=== PATIENT | male | born 1985 | race Caucasian/White ===

== ENCOUNTER 2020-08-10 11:03 | Emergency (ER) | payer BC, OTHER ==
[2020-08-10] MEDS ORDERED: cefTRIAXone 1 GM in Sodium Chloride 0.9% 100 ML IV ONE (11:44)
[2020-08-10] MEDS ORDERED: Sodium Chloride 0.9% 10 ML Syringe FLUSH PRN (11:44)
[2020-08-10] MEDS ORDERED: Sodium Chloride 0.9% 1,000 ML IV ONE (11:44)
--- NOTE | 2020-08-10 11:50 | EDM.PDOC ---
ED HPI GENERAL MEDICAL PROBLEM - General Chief Complaint: General Stated Complaint: ELBOW CELLULITIS GETTING WORSE Time Seen by Provider: 08/10/20 11:46 Source of Information: Reports: Patient History Limitations: Reports: No Limitations - History of Present Illness INITIAL COMMENTS - FREE TEXT/NARRATIVE: Patient is unfortunate 35-year-old male who presents emerged part today with complaint of right elbow redness and swelling. The patient reports that started having redness and swelling to his right elbow 4 days ago and it progressively worsened so he was not seen in the clinic 2 days ago in [place] and reports he was given a shot of antibiotics and started on Bactrim. The patient reports he is down here visiting and he notes that the redness on his arm has in creased, he has erythema that extends from his right elbow to his proximal right forearm approximately 22 cm in length and 12 cm in width over the dorsum of his right forearm and elbow, distal neurovascular is intact, the patient reports that he has had no fever at home no nausea no vomiting no chest pain no cough no congestion no shortness of breath Left Arm Pain Score (Numeric/FACES): 4 - Related Data Allergies Allergy/AdvReac Type Severity Reaction Status Date / Time No Known Allergies Allergy Verified 08/10/20 11:45 Home Meds: Home Meds Sulfamethoxazole/Trimethoprim [Sulfamethoxazole-Tmp Ds Tablet] 1 each PO ASDIRECTED 08/10/20 [History] Past Medical History - Past Health History Medical/Surgical History: Denies Medical/Surgical History Review of Systems - Review of Systems Review Of Systems: See Below Constitutional: Denies: Chills, Fever Musculoskeletal: Reports: Joint Pain, Joint Swelling Skin: Reports: Erythema ED EXAM, GENERAL - Physical Exam Exam: See Below Exam Limited By: No Limitations General Appearance: Alert, WD/WN, Mild Distress Neck: Normal Inspection, Supple, Non-Tender, Full Range of Motion Respiratory/Chest: No Respiratory Distress, Lungs Clear, Normal Breath Sounds, No Accessory Muscle Use, Chest Non-Tender Cardiovascular: Normal Peripheral Pulses, Regular Rate, Rhythm, No Edema, No Gallop, No JVD, No Murmur, No Rub GI/Abdominal: Normal Bowel Sounds, Soft, Non-Tender, No Organomegaly, No Distention, No Abnormal Bruit, No Mass Back Exam: Normal Inspection, Full Range of Motion, NT Extremities: Other (Patient has a 22 x 12 area of erythema that extends from his right elbow to his right forearm on the dorsal aspect, distal neurovascular is intact) Neurological: Alert, Oriented Skin Exam: Warm, Dry, Erythema Front/Back Body Diagram: 1 - Erythema and swelling Course - Vital Signs Text/Narrative:: Patient has infected olecranon bursitis with cellulitis, discussed the case with Dr. Quintero at [place] in [place] sepsis patient in transfer at 1240 Last Recorded V/S: Last Vital Signs Temp 98.0 F 08/10/20 11:46 Pulse 98 08/10/20 11:46 Resp 18 08/10/20 11:46 BP 117/89 08/10/20 11:50 Pulse Ox 98 08/10/20 11:46 - Orders/Labs/Meds Orders: Active Orders 24 hr Category Date Time Status Blood Pressure Mgt: Sepsis [RC] Q15MX2 Care 08/10/20 11:45 Active CULTURE BLOOD [BC] Stat Lab 08/10/20 11:58 Received CULTURE BLOOD [BC] Stat Lab 08/10/20 12:02 Received UA W/MICROSCOPIC [URIN] Stat Lab 08/10/20 11:45 Ordered Sodium Chloride 0.9% [Saline Flush] Med 08/10/20 11:44 Active 10 ml FLUSH ASDIRECTED PRN Blood Culture x2 Reflex Set [OM.PC] Stat Oth 08/10/20 11:45 Ordered Saline Lock Insert [OM.PC] Stat Oth 08/10/20 11:45 Ordered Severe Sepsis Onset Time [OM.PC] Stat Oth 08/10/20 11:45 Ordered Medication Orders Sodium Chloride (Sodium Chloride 0.9% 10 Ml Syringe) 10 ml FLUSH ASDIRECTED PRN PRN Reason: Keep Vein Open Last Admin: 08/10/20 12:08 Dose: 10 ml Documented by: VERENICE Labs: Laboratory Tests 08/10/20 08/10/20 08/10/20 Range/Units 11:58 11:58 11:58 WBC 14.8 H (5.0-10.0) 10^3/uL RBC 5.21 (4.6-6.2) 10^6/uL Hgb 14.1 (14.0-18.0) g/dL Hct 41.7 (40.0-54.0) % MCV 80.0 (80-100) fL MCH 27.1 (27.0-34.0) pg MCHC 33.8 (33.0-35.0) g/dL Plt Count 332 (150-450) 10^3/uL Neut % (Auto) 80.9 H (42.2-75.2) % Lymph % (Auto) 10.8 L (20.5-50.1) % [place] % (Auto) 7.8 (2-8) % Eos % (Auto) 0.4 L (1.0-3.0) % Baso % (Auto) 0.1 (0.0-1.0) % PT 10.1 (9.0-12.0) SEC INR 1.0 (0.9-1.2) Sodium 140 (136-145) mmol/L Potassium 3.4 L (3.5-5.1) mmol/L Chloride 100 (98-107) mmol/L Carbon Dioxide 25 (21-32) mmol/L Anion Gap 18.4 H (7-13) mEq/L BUN 12 (7-18) mg/dL Creatinine 0.93 (0.70-1.30) mg/dL Est Cr Clr Drug Dosing 131.35 mL/min Estimated GFR (MDRD) > 60 BUN/Creatinine Ratio 12.9 (No establ ref range) Glucose 93 (70-99) mg/dL Lactic Acid (0.4-2.0) mmol/L Calcium 9.1 (8.5-10.1) mg/dL Total Bilirubin 1.6 H (0.2-1.0) mg/dL AST 20 (15-37) U/L ALT 32 (16-63) U/L Alkaline Phosphatase 149 H (46-116) U/L Total Protein 8.2 (6.4-8.2) g/dL Albumin 3.8 (3.4-5.0) g/dL Globulin 4.4 Albumin/Globulin Ratio 0.9 07/04/21 Range/Units 11:58 WBC (5.0-10.0) 10^3/uL RBC (4.6-6.2) 10^6/uL Hgb (14.0-18.0) g/dL Hct (40.0-54.0) % MCV (80-100) fL MCH (27.0-34.0) pg MCHC (33.0-35.0) g/dL Plt Count (150-450) 10^3/uL Neut % (Auto) (42.2-75.2) % Lymph % (Auto) (20.5-50.1) % [place] % (Auto) (2-8) % Eos % (Auto) (1.0-3.0) % Baso % (Auto) (0.0-1.0) % PT (9.0-12.0) SEC INR (0.9-1.2) Sodium (136-145) mmol/L Potassium (3.5-5.1) mmol/L Chloride (98-107) mmol/L Carbon Dioxide (21-32) mmol/L Anion Gap (7-13) mEq/L BUN (7-18) mg/dL Creatinine (0.70-1.30) mg/dL Est Cr Clr Drug Dosing mL/min Estimated GFR (MDRD) BUN/Creatinine Ratio (No establ ref range) Glucose (70-99) mg/dL Lactic Acid 1.0 (0.4-2.0) mmol/L Calcium (8.5-10.1) mg/dL Total Bilirubin (0.2-1.0) mg/dL AST (15-37) U/L ALT (16-63) U/L Alkaline Phosphatase (46-116) U/L Total Protein (6.4-8.2) g/dL Albumin (3.4-5.0) g/dL Globulin Albumin/Globulin Ratio Meds: Medications Generic Name Dose Route Start Last Admin Trade Name Freq PRN Reason Stop Dose Admin Sodium Chloride 10 ml 08/10/20 11:44 08/10/20 12:08 Sodium Chloride 0.9% 10 Ml Syringe FLUSH 10 ml ASDIRECTED PRN Administration Keep Vein Open Discontinued Medications Generic Name Dose Route Start Last Admin Trade Name Freq PRN Reason Stop Dose Admin Ceftriaxone Sodium 1 gm/ 100 mls @ 200 mls/hr 08/10/20 11:44 08/10/20 12:08 Sodium Chloride IV 08/10/20 12:13 200 mls/hr STAT ONE Administration Sodium Chloride 1,000 mls @ 999 mls/hr 08/10/20 11:44 08/10/20 12:08 Normal Saline IV 08/10/20 12:44 999 mls/hr BOLUS ONE Administration Protocol Departure - Departure Time of Disposition: 12:49 Disposition: DC/Tfer to Acute Hospital 02 Condition: Good Clinical Impression: Olecranon bursitis of right elbow, Cellulitis of right arm - Discharge Information *PRESCRIPTION DRUG MONITORING PROGRAM REVIEWED*: No *COPY OF PRESCRIPTION DRUG MONITORING REPORT IN PATIENT AMADOU: No Forms: ED Department Discharge Sepsis Event Note (ED) - Focused Exam Vital Signs: Vital Signs Temp Pulse Resp BP Pulse Ox 08/10/20 11:50 117/89 08/10/20 11:46 98.0 F 98 18 128/73 98 - My Orders Last 24 Hours: My Active Orders 08/10/20 11:44 Sodium Chloride 0.9% [Saline Flush] 10 ml FLUSH ASDIRECTED PRN 08/10/20 11:45 Blood Pressure Mgt: Sepsis [RC] Q15MX2 UA W/MICROSCOPIC [URIN] Stat Blood Culture x2 Reflex Set [OM.PC] Stat Saline Lock Insert [OM.PC] Stat Severe Sepsis Onset Time [OM.PC] Stat 08/10/20 11:58 CULTURE BLOOD [BC] Stat 08/10/20 12:02 CULTURE BLOOD [BC] Stat - Assessment/Plan Last 24 Hours: My Active Orders 08/10/20 11:44 Sodium Chloride 0.9% [Saline Flush] 10 ml FLUSH ASDIRECTED PRN 08/10/20 11:45 Blood Pressure Mgt: Sepsis [RC] Q15MX2 UA W/MICROSCOPIC [URIN] Stat Blood Culture x2 Reflex Set [OM.PC] Stat Saline Lock Insert [OM.PC] Stat Severe Sepsis Onset Time [OM.PC] Stat 08/10/20 11:58 CULTURE BLOOD [BC] Stat 08/10/20 12:02 CULTURE BLOOD [BC] Stat
--- NOTE | 2020-08-10 12:12 | CR ---
PROCEDURE INFORMATION: Exam: XR Chest Exam date and time: 08/10/2020 12:04 PM Age: 35 years old Clinical indication: Other: Sepsis TECHNIQUE: Imaging protocol: XR of the chest. Views: 2 views. COMPARISON: No relevant prior studies available. FINDINGS: Lungs: Unremarkable. No consolidation. Pleural spaces: Unremarkable. No pleural effusion. No pneumothorax. Heart/Mediastinum: Unremarkable. No cardiomegaly. Bones/joints: Unremarkable. Other findings: IMPRESSION: No acute findings
[2020-08-10 12:26] LABS: ANION GAP 18.4 mEq/L (7-13); CHLORIDE,CL 100 mmol/L (98-107); SODIUM,NA 140 mmol/L (136-145)
== END 2020-08-10 13:30 ==
LOC: DL.ED 11:03
DX: M71.121 Other infective bursitis, right elbow (principal); L03.113 Cellulitis of right upper limb
CPT/HCPCS: 36415; 71046; 80053; 83605; 85025; 85610; 87040; 96365; 99284; J0696; J7030